=== PATIENT | female | born 1995 | race Caucasian/White ===

== ENCOUNTER → 2017-02-09 | Outpatient (CLI) | payer OTHER ==
[~2017-02-09] MED LIST: PREN1MIS44 PO; SENN8.6T36 PO
[2017-02-09 17:14] LABS: URINE APPEARANCE CLEAR (CLEAR); URINE BILIRUBIN NEG (NEG); URINE COLOR YELLOW; URINE EPITHELIAL CELL AUTO >30 /lpf (0-5); URINE NITRITE NEG (NEG); URINE PH 5.5 (4.5-7.5); URINE SPECIFIC GRAVITY 1.006 (1.000-1.030); UROBILINOGEN NEG (NEG)
[2017-02-09 17:16] LABS: MANUAL MICROSCOPIC REQUIRED? NO; REVIEW REQ? YES
== END | disposition home or self-care (01) ==
LOC: C.LABSPEC 16:24
PROVIDERS: ATTEND Obstetrics & Gynecology
DX: Z34.00 Encounter for supervision of normal first pregnancy, unspecified trimester (principal)

== ENCOUNTER → 2017-02-16 | Outpatient (CLI) | payer OTHER ==
[2017-02-19 23:54] LABS: CHLAMYDIA TRACH RNA*** NOT DETECTED (NOT DETECTED); GC (NEIS GONORRHOEAE)RNA** NOT DETECTED (NOT DETECTED)
== END | disposition home or self-care (01) ==
LOC: C.LABSPEC 17:38
PROVIDERS: ATTEND Obstetrics & Gynecology
DX: Z34.00 Encounter for supervision of normal first pregnancy, unspecified trimester (principal)

== ENCOUNTER → 2017-02-16 | Outpatient (CLI) | payer OTHER ==
[2017-02-16 15:40] LABS: BASO % 0.2 %; BASO ABS # 0.02 K/uL (0-0.2); COMPLETE YES; EOS % 0.5 %; HEMATOCRIT 38.3 % (37-47); IG% 0.1 %; LYMPH % 13.3 %; LYMPH ABS # 1.16 K/uL (1.2-3.4); MEAN CELL VOLUME 82.2 fL (80-100); MEAN CORPUSCULAR HEMOGLOBIN 29.2 pg (25-34); MEAN CORPUSCULAR HGB CONC 35.5 g/dl (32-36); MEAN PLATELET VOLUME 10.1 fL (7.4-10.4); MONO % 10.1 %; NEUT % 75.8 %; PLATELET COUNT 252 K/uL (130-400); RED BLOOD COUNT 4.66 M/uL (4.2-5.4); WHITE BLOOD COUNT 8.71 K/uL (4.8-10.8)
== END | disposition home or self-care (01) ==
LOC: C.LAB1850 14:43
PROVIDERS: ATTEND Obstetrics & Gynecology
DX: Z34.00 Encounter for supervision of normal first pregnancy, unspecified trimester (principal)

== ENCOUNTER → 2017-04-12 | Outpatient (CLI) | payer OTHER ==
[2017-04-12 18:21] LABS: GTGD 50 Grams
== END | disposition home or self-care (01) ==
LOC: C.LAB1850 15:39
PROVIDERS: ATTEND Obstetrics & Gynecology
DX: Z34.02 Encounter for supervision of normal first pregnancy, second trimester (principal)

== ENCOUNTER → 2017-07-05 | Outpatient (CLI) | payer OTHER ==
[2017-07-05 16:30] LABS: HEMATOCRIT 35.2 % (37-47)
[2017-07-05 17:31] LABS: GTGD 50 Grams
[2017-07-05 18:06] LABS: URINE APPEARANCE CLEAR (CLEAR); URINE BILIRUBIN NEG (NEG); URINE COLOR YELLOW; URINE NITRITE NEG (NEG); URINE PH 6.5 (4.5-7.5); UROBILINOGEN NEG (NEG)
[2017-07-05 18:09] LABS: MANUAL MICROSCOPIC REQUIRED? NO; REVIEW REQ? NO
== END | disposition home or self-care (01) ==
LOC: C.LAB1850 15:22
PROVIDERS: ATTEND Obstetrics & Gynecology
DX: Z34.02 Encounter for supervision of normal first pregnancy, second trimester (principal)

== ENCOUNTER → 2017-07-13 | Outpatient (CLI) | payer OTHER | END | disposition home or self-care (01) | LOC: C.LAB1850 07:50 | PROVIDERS: ATTEND Obstetrics & Gynecology | DX: O28.1 Abnormal biochemical finding on antenatal screening of mother (principal); Z3A.00 Weeks of gestation of pregnancy not specified ==

== ENCOUNTER 2017-09-20 00:06 | Inpatient (IN) | payer OTHER ==
[~2017-09-20] VITALS: Ht 162.6 cm; Wt 78.6 kg
[2017-09-20] MEDS ORDERED: LACTATED RINGER'S 1000ML 1,000 ML IV SCH (00:46)
[2017-09-20] MEDS ORDERED: LACTATED RINGER'S 1000ML 1,000 ML IV PRN (00:46)
[2017-09-20] MEDS ORDERED: EpHEDrine SULFATE INJ 50 MG/ML AMP ONE (00:49)
[2017-09-20] MEDS ORDERED: BUPIVACAINE 0.25% 30 ML VIAL ONE (00:49)
[2017-09-20] MEDS ORDERED: FENTANYL CITRATE INJ 50 MCG/1 ML 2 ML VIAL ONE (00:50)
[2017-09-20] MEDS ORDERED: FENTANYL 2MCG/ML ROPIV 1.25MG/ML 100ML BAG EPI ONE (00:50)
[2017-09-20 01:12] LABS: HEMATOCRIT 37.7 % (37-47); MEAN CELL VOLUME 82.9 fL (80-100); MEAN CORPUSCULAR HEMOGLOBIN 27.7 pg (25-34); MEAN CORPUSCULAR HGB CONC 33.4 g/dl (32-36); MEAN PLATELET VOLUME 10.7 fL (7.4-10.4); PLATELET COUNT 206 K/uL (130-400); RED BLOOD COUNT 4.55 M/uL (4.2-5.4); WHITE BLOOD COUNT 12.56 K/uL (4.8-10.8)
[2017-09-20] MEDS ORDERED: LACTATED RINGER'S 1000ML 500 ML IV PRN (01:47)
[2017-09-20] MEDS ORDERED: NALOXONE HCL INJ 1 MG in SODIUM CHLORIDE 0.9% 1000ML 1,000 ML IV PRN (01:47)
[2017-09-20] MEDS ORDERED: DiphenhydrAMINE HCL 50 MG/ML VIAL IV PRN (02:00)
[2017-09-20] MEDS ORDERED: NALOXONE HCL INJ 0.4 MG/1 ML VIAL/CARP IV PRN (02:00)
[2017-09-20] MEDS ORDERED: NALBUPHINE HCL INJ 10 MG/ML AMP IV PRN (02:00)
[2017-09-20] MEDS ORDERED: FENTANYL 2MCG/ML ROPIV 1.25MG/ML 100ML BAG EPI PRN (02:00)
[2017-09-20] MEDS ORDERED: EpHEDrine SULFATE INJ 50 MG/ML AMP IV PRN (02:00)
[2017-09-20] MEDS ORDERED: PATIENT'S ALLERGY INFO NEEDS ENTERED SCH (02:00)
[2017-09-20] MEDS ORDERED: ONDANSETRON INJ 2 MG/ML 2 ML VIAL IV PRN (02:00)
[2017-09-20] MEDS ORDERED: OXYTOCIN 30 UNITS/500ML NSS IV ONE (02:22)
[2017-09-20 03:33] VITALS: Ht 162.6 cm; Wt 78.6 kg
[2017-09-20] MEDS ORDERED: HYDROCORTISONE ACETATE 25 MG SUPP PR PRN (05:15)
[2017-09-20] MEDS ORDERED: BENZOCAINE 20% AER SPR 82.5 GM CAN EXT PRN (05:15)
[2017-09-20] MEDS ORDERED: SUPERCREAM 0.870 % 15GM JAR EXT PRN (05:15)
[2017-09-20] MEDS ORDERED: ACETAMINOPHEN 325 MG TAB PO PRN (05:15)
[2017-09-20] MEDS ORDERED: LANOLIN OINT EXT PRN ×2 (05:15)
[2017-09-20] MEDS ORDERED: DIPHTHERIA/TETANUS/PERTUSSIS 0.5 ML SYR/VIAL IM. ONE (05:15)
[2017-09-20] MEDS ORDERED: OXYTOCIN 30 UNITS/500ML NSS IV PRN (05:15)
--- NOTE | 2017-09-20 05:47 | DELIVERY SUMMARY ---
DATE OF OPERATION: 09/20/2017 FINDINGS: Viable male with Apgars of 8 and 9. Baby delivered by vacuum extraction for maternal exhaustion and nonreassuring heart tracing. Baby delivered over midline episiotomy with 4 degree extension. Cord gases and cord blood samples obtained. Placenta delivered spontaneously. Laceration repaired with 4-0 and 2-0 Vicryl. Episiotomy repaired with 4-0 and 2-0 Vicryl. Estimated blood loss 300 mL. LABOR NOTE: The patient is a 22-year-old 1, para 0 with an EDC of 24 September at 39+ weeks gestational age. She presented to labor and delivery in active labor. The patient states her contractions began at approximately 2200 hours on 19 September and increased in intensity. She had rupture of membranes and vaginal bleeding. The patient's course remarkable for an episode of palpitations which was seen by cardiology with a Holter monitor. Workup was negative. Laboratory values for the showed a blood type of B positive, antibody negative, rubella immune, hepatitis B negative. She declined a quad screen. She had a normal 1-hour Glucola at 16 weeks, elevated at 28 weeks with normal 2-hour glucose tolerance test and a negative third trimester beta strep culture. Upon admission, the patient was initially 6 cm. Anesthesia was consulted and an epidural was placed. Following placement of the epidural, the patient was still feeling pressure. Repeat examination showed the patient to be fully dilated with a bulging bag, artificial rupture of membranes for clear fluid. The patient began her second stage. She pushed for almost 2-1/2 hours bringing the vertex down to the perineum, however sharp bradycardic episodes began to develop with slow return to baseline. In addition, the maternal pushing effort had significantly declined after this amount of the second stage. Discussed the need for delivery by vacuum extraction, verbal consent obtained from the patient and her . With the next contraction, the baby was delivered over a midline episiotomy with 4th degree extension. Nuchal cord x1 reduced on the perineum. Terminal meconium was also noted. Cord was clamped and cut and baby was taken over to the resuscitation stand. Cord gases and cord blood samples were obtained. The placenta was delivered spontaneously. Inspection of perineum showed a midline episiotomy with 4th degree tear. The rectal mucosa was closed in two layers with 4-0 Vicryl, the first a running locking stitch, the second an imbricating stitch. Sphincter muscle was reapproximated with three 2-0 Vicryl sutures in [id number] fashion and the episiotomy was closed with 4-0 and 2-0 Vicryl. Estimated blood was 300 mL. Sponge and needle count was correct. I attest to the content of the Intraoperative Record and any orders documented therein. Any exception s are noted below.
[2017-09-20] MEDS ORDERED: PREN1MIS44 PO (05:56)
--- NOTE | 2017-09-20 07:01 | Anesthesia Procedure Note ---
Anesthesia Epidural Removal Nt Date & Time Sep 20, 2017 at 07:00 Vital Signs Pain Intensity: 10.0 Notes Mental Status: alert / awake / arousable, participated in evaluation Nausea / Vomiting: adequately controlled Pain: adequately controlled Airway Patency, RR, SpO2: stable & adequate BP & HR: stable & adequate Hydration State: stable & adequate Neuraxial Anesthesia: was administered, sensory block is resolving Anesthetic Complications: no major complications apparent, pt satisfied with anesthetic care Epidural: removed without complications, with tip intact
[2017-09-20] MEDS: IBUPROFEN 600 MG TAB PO PRN ×5 (07:10→23:58)
[2017-09-20] MEDS: FERROUS SULFATE 325 MG TAB PO SCH (07:10)
[2017-09-20] MEDS: PRENATAL VITAMIN TAB PO SCH (07:10)
[2017-09-20 08:10] VITALS: BP_SYST 109; BP_SYST 111; BP_DIAS 57; BP_DIAS 68; PULSE 100; PULSE 102; TEMP 37
[2017-09-20 11:00] VITALS: BP 110/67; PULSE 87; TEMP 36.7
[2017-09-20 16:15] VITALS: BP 101/60; PULSE 104; TEMP 37
[2017-09-20 20:00] VITALS: BP 112/71; PULSE 92; TEMP 37
[2017-09-20] MEDS: OXYCODONE/ACETAMINOPHEN 5-325 TAB PO PRN ×2 (20:20→23:59)
[2017-09-21] VITALS: BP 105/65; PULSE 90; TEMP 36.6
[2017-09-21 04:00] VITALS: BP 97/62; PULSE 92; TEMP 36.8
[2017-09-21] MEDS: OXYCODONE/ACETAMINOPHEN 5-325 TAB PO PRN ×5 (04:18→20:14)
[2017-09-21] MEDS: IBUPROFEN 600 MG TAB PO PRN ×5 (04:18→20:13)
--- NOTE | 2017-09-21 06:48 | OB/GYN Progress Note ---
[employer] Progress Note Date of Service Sep 21, 2017. Subjective conversation w/ patient, physical exam, chart review, lab review Voiding: no voiding problems Passing Gas: Yes Diet Tolerance: Regular Diet Lochia: Moderate Feeding Type: Breast Feeding Pain: pain improves with pain meds Review of Systems Constitutional: No fever, No chills Respiratory: No shortness of breath Cardiac: No chest pain Abdomen: No nausea, No vomiting Female : No dysuria Objective Vital Signs Date Time Temp Pulse Resp B/P (MAP) Pulse Ox O2 Delivery O2 Flow Rate FiO2 09/21/17 04:00 36.8 92 18 97/62 (74) Room Air 09/21/17 00:00 36.6 90 18 105/65 (78) Room Air 09/21/17 00:00 Room Air 09/20/17 20:00 37.0 92 16 112/71 (85) Room Air 09/20/17 16:15 37.0 104 16 101/60 (74) Room Air 09/20/17 16:15 Room Air 09/20/17 11:00 36.7 87 18 110/67 (81) Room Air 09/20/17 08:10 37.0 102 18 109/68 (82) Room Air 09/20/17 08:10 37.0 100 18 111/57 09/20/17 08:10 Room Air Physical Exam General Appearance: WELL-APPEARING Respiratory/Chest: lungs clear, normal breath sounds Cardiovascular: regular rate, rhythm Abdomen: normal bowel sounds, soft Fundus: Firm, Tender, Relation to Umbilicus (1 FB below) Extremities: non-tender, no pedal edema Laboratory Results Last 24 Hours Test 09/21/17 06:38 Assessment and Plan Day Number: 1 Continue Routine Care: A/P: This is a 22 y/o female, , s/p [normal vaginal delivery] with episiotomy day 1. She is ambulating and clinically stable. Plan: - Vitals signs are reviewed and WNL (Tmax 37 ) - Last Hgb is 9.6 - Blood type B+, GBS neg, Rubella Immune - Routine care - Encourage ambulation, monitor and control pain with medication as needed, continue with regular diet as tolerated and monitor lochia - Stool softeners and sitz bath recommended - Encourage breast feeding and educate about breast feeding Resident Physician Supervision Note: I interviewed and examined the patient. Discussed with Dr. Gonzalez and agree with findings and plan as documented in the note. Any exceptions or clarifications are listed here: Doing well. Plan d/c tomorrow. Documented By: Nancy Wolff Resident Involvement: Resident Care Provided Care Provided: OB Delivery
[2017-09-21 06:58] LABS: HEMATOCRIT 29.8 % (37-47)
--- NOTE | 2017-09-21 07:10 | Discharge Instructions ---
Discharge Instructions Date of Service Sep 21, 2017. Admission Reason for Admission: Encounter For Supervision Of Normal Intrauterine Discharge Discharge Diagnosis / Problem: after vaginal delivery Discharge Goals Goal(s): Routine recovery after delivery Medications Continue Dispensed Medications: supercream, dermaplast, tucks, lansinoh Activity Recommendations Activity Limitations: per Instructions/Follow-up section . Instructions / Follow-Up Instructions / Follow-Up ACTIVITY RECOMMENDATIONS: * Gradual return to full activity over the next 2-3 weeks. * No lifting - nothing heavier than baby over the next 2-3 weeks. * Do not engage in vigorous exercise, sexual activity or sports until cleared by your physician. * Do not drive or operate any motorized equipment until cleared by your physician. * You may shower/bathe daily. MEDICATIONS: For discomfort or pain, you may use Acetaminophen (Tylenol), Ibuprofen (Advil), or Naproxen (Aleve) following the package directions. For constipation you may use Colace following the package directions. BREAST CARE: If you are not breast feeding: * Wear a supportive bra 24 hours a day for one to two weeks. * Avoid stimulating your breasts and nipples as much as possible during the first few weeks after delivery. * When taking a shower, have the warm water hit your back, not breasts. * When your breasts feel full, apply ice packs. Usually three to four times a day helps ease the discomfort. * Take a mild pain medication (Tylenol / Motrin) when you are uncomfortable. If breast feeding: * Use breast milk to lubricate nipples. Lansinoh cream may be used for sore nipples. You do not need to remove cream prior to breast feeding. If using a different brand of cream, check the label for directions regarding removal of cream prior to nursing. * Wear a supportive bra. * If having problems with breasts or breast feeding, call a call center support consultant or your health care provider. EPISIOTOMY CARE: After delivery, if you have an episiotomy (stitches), the following steps will ease discomfort and aid healing. * For the first 24 hours after delivery, place ice packs next to your episiotomy to help reduce swelling. * After the first 24 hour-period, sitz baths, either portable or in the tub, are suggested. A shower with a shower arm sprayed over the episiotomy may be comforting. * Jeanette care should be done after each voiding and bowel movement. Squirt warm water from a plastic bottle over the perineum (region of the body between the anus and urinary opening) and pat dry. * Use Dermoplast to ease discomfort. Shake container. [place]chard directly over the episiotomy. Place a Tucks on a clean sanitary pad next to your episiotomy. SPECIAL CARE INSTRUCTIONS: When you are discharged from the hospital, it is important for you to follow the instructions listed below: * During the first week at home, you should be able to care for yourself and your baby. In addition, the usual light household activities are encouraged. * Limit your activities to the way you feel. Do not try to clean the house or move furniture. Be sensible. * If you actively engage in sports and have done so up until the time of your delivery, you may resume these activities as soon as you feel able. This may take up to one month or even longer. Use good judgment. * Continue to take your vitamins for at least six weeks after the of your baby. * Your diet need not be limited unless you were on a special diet before your delivery. Breast-feeding mothers need around 2500 calories per day and at least 64-80 ounces of fluid per day (8 to 10 glasses). * You should eat foods from the four major food groups. Crash diets or fad diets are to be avoided. Eating lean meats, fresh fruits and vegetables, low-fat dairy products, high fiber foods and a regular exercise program, will help you get back to your pre- weight without putting your health at risk. * Constipation is sometimes a problem after delivery. Take a mild laxative as needed. If breast feeding, Milk of Magnesia is acceptable to use. You may use a suppository or Fleets enema if no episiotomy. * A daily shower or tub bath is suggested. Be sure to thoroughly and gently dry the perineum. * A bloody vaginal discharge will usually continue until around four weeks post . A small amount of bleeding may continue for as long as six weeks. Vaginal discharge changes from the bright red bleeding after delivery to pink then brownish and finally yellowish-pink before becoming white and disappearing. * Bleeding may increase with activity. Your first period may come in 4-8 weeks. If you are breast feeding, your period may be delayed even longer. * Nicasio (sex) can begin whenever both you and your partner feel comfortable and do not have any form of genital infection. It is recommended that you wait at least six weeks for internal and external healing to occur. If you have questions, please talk to your health care practitioner. A condom should be used to prevent infection and . * Foreplay, gentle intercourse and lubrication is very important the first several times to prevent pain. A water-based lubricant such as K-Y jelly or Astroglide may be used. * If you have RH negative blood and your baby is RH positive, you will receive RHOGAM by injection prior to discharge. The nurse will give you a card to keep with you that has the date and place that you received RHOGAM after delivery. * During your care, you had a Rubella screen done to check for the presence of rubella antibodies in your blood. If your test was negative, you will receive a Rubella vaccine prior to discharge. This vaccine may cause a fever, soreness at the injection site and flu-like symptoms. If these symptoms persist, notify your health care practitioner. is not advised for one month after a Rubella vaccine. * Verbalizes understanding of car seat law as reviewed with patient nursing. * Car Seat hand-out given and reviewed with patient by nursing. * Shaken baby information reviewed with patient by nursing. Call you doctor if: * Heavy bleeding (saturating several pads an hour) or passing clots the size of your fist. * A fever >101 degrees F (38.3 degrees C) on two occasions four hours apart and /or chills. * Unusual pain in the pelvic or vaginal areas. * "Baby Blues" lasting longer than two weeks. If you have any questions or concerns, call your health care practitioner at . FOLLOW UP VISIT: * Please call the office at to schedule a 6 week examination. It is important you keep this appointment. It is important for you to make arrangements for either yearly or twice yearly check-ups thereafter. Current Hospital Diet Patient's current hospital diet: Regular OB Diet Discharge Diet Recommended Diet: Regular Diet Pending Studies Studies pending at discharge: no Medical Emergencies . Who to Call and When: Medical Emergencies: If at any time you feel your situation is an emergency, please call 911 immediately. . Non-Emergent Contact Non-Emergency issues call your: [employer] Call Non-Emergent contact if: temperature is above 101, your pain is not controlled . . "Provider Documentation" section prepared by Ca Gonzalez. . VTE Core Measure Inpt VTE Proph given/why not?: Treatment not indicated
[2017-09-21 07:15] VITALS: BP 112/68; PULSE 94; TEMP 36.7; O2SAT 95
[2017-09-21] MEDS ORDERED: SENN8.6T36 PO ×2 (07:26→07:30)
[2017-09-21] MEDS: DOCUSATE SODIUM/SENNA 50/8.6MG TAB PO SCH (08:09)
[2017-09-21] MEDS: FERROUS SULFATE 325 MG TAB PO SCH (08:09)
[2017-09-21] MEDS: PRENATAL VITAMIN TAB PO SCH (08:09)
[2017-09-21 16:00] VITALS: BP 121/76; PULSE 98; TEMP 36.9
[2017-09-21] MEDS ORDERED: BISACODYL 5 MG TABEC PO SCH (20:00)
[2017-09-21 23:35] VITALS: BP 113/71; PULSE 82; TEMP 37; O2SAT 97
[2017-09-22] MEDS: OXYCODONE/ACETAMINOPHEN 5-325 TAB PO PRN ×2 (01:03→04:46)
[2017-09-22] MEDS: IBUPROFEN 600 MG TAB PO PRN ×3 (01:03→08:35)
--- NOTE | 2017-09-22 07:40 | Progress Note ---
Subjective Sep 22, 2017. Subjective conversation w/ patient, physical exam, chart review Voiding: no voiding problems Diet Tolerance: Regular Diet Lochia: Moderate Feeding Type: Breast Feeding Objective Vital Signs Date Time Temp Pulse Resp B/P (MAP) Pulse Ox O2 Delivery O2 Flow Rate FiO2 09/21/17 23:35 97 Room Air 09/21/17 23:35 37.0 82 18 113/71 (85) 97 Room Air 09/21/17 16:00 Room Air 09/21/17 16:00 36.9 98 20 121/76 (91) 09/21/17 08:30 Room Air Physical Exam General Appearance: WELL-APPEARING Abdomen: non tender Fundus: Firm Extremities: no calf tenderness Assessment and Plan Post- Day#: 2 Continue Routine Care: 4th degree tear reviewed fdc
[2017-09-22] MEDS: PRENATAL VITAMIN TAB PO SCH (08:02)
[2017-09-22] MEDS: DOCUSATE SODIUM/SENNA 50/8.6MG TAB PO SCH (08:02)
[2017-09-22] MEDS: FERROUS SULFATE 325 MG TAB PO SCH (08:02)
[2017-09-22 08:37] VITALS: BP 115/73; PULSE 104; TEMP 36.9; O2SAT 100
[2017-09-22 12:00] VITALS: BP_DIAS 73; PULSE 104; TEMP 36.9
--- NOTE | 2017-09-24 08:24 | DISCHARGE SUMMARY ---
ADMITTING DIAGNOSES: 1. Term . 2. Active labor. DISCHARGE DIAGNOSES: 1. Same. 2. Nonreassuring heart rate tracing. PROCEDURES PERFORMED: 1. Assisted vaginal delivery, vacuum assisted. 2. Repair of fourth-degree lacerations. DISCHARGE MEDICATIONS: Jeanette-Colace 1 p.o. daily p.r.n. ADMISSION HISTORY: The patient is a 22-year-old 1, para 0 with an EDC of 09/24/2017, who was admitted at 39+ weeks' gestational age, in active labor. The patient states her contractions had begun the evening prior to admission and increased in intensity. She had rupture of membranes with no vaginal bleeding. The patient's course was remarkable for an episode of palpitations and she was seen by cardiology with a Holter monitor, workup was negative. Laboratory values for the showed a blood type of B positive, antibody negative, rubella immune, hepatitis B negative. She declined a quad screen. She had a normal 1-hour Glucola at 16 weeks, elevated at 28 weeks, with a normal 2-hour glucose tolerance test and a negative third trimester beta strep culture. ADMISSION PHYSICAL EXAMINATION: GENERAL: A gravid female in active labor, no acute distress. ABDOMEN: Gravid, vertex, positive heart tones, estimated weight of 7 pounds. PELVIC: Shows the cervix to be 6 cm dilated, 100% effaced and 0 station. HOSPITAL COURSE: heart rate tracing was category 1. Anesthesia was consulted and an epidural was placed. Following placement of the epidural, the patient was still feeling pelvic pressure. Repeat examination showed the patient to be fully dilated with bulging membranes, artificial rupture of membranes with clear fluid, and the patient began her second stage. The patient pushed for almost 2-1/2 hours, bringing the vertex down to the perineum. At this point, she began to develop sharp decelerations with contractions with slow return to baseline. heart rate tracing was felt to be category 3 at this point. The maternal pushing effort had also significantly declined after this amount of the second stage. Discussing the need for imminent vaginal delivery by vacuum extraction, verbal consent was obtained from the patient and her . With the next contraction, the baby delivered over midline episiotomy with fourth-degree extension. Nuchal cord x1 was reduced on the perineum. Terminal meconium was also noted. Cord was clamped and cut. Baby was taken to the resuscitation stand for evaluation. Cord gases and cord blood samples obtained. Placenta was delivered spontaneously. Inspection of the perineum showed a fourth-degree laceration. This was repaired by closing the rectal mucosa in 2 layers, first a running locking stitch, the second an imbricating stitch. The sphincter muscle was then reapproximated with 3 interrupted [id number] 2-0 Vicryl sutures and the episiotomy was repaired with 4-0 and 2-0 Vicryl. Estimated blood loss was 300 mL. , the patient did well. On the first day, the H&H came back at 9.6 and 29.8. By the second day, the patient was ambulating without difficulty and tolerating a regular diet. She was discharged home with the routine discharge instructions and the prescriptions for the medications listed as above. She will follow up in the office in 6 weeks' time for a check, but as always, she was instructed to call with any questions, problems or difficulties.
== END 2017-09-22 12:15 | disposition home or self-care (01) | DRG 775 ==
LOC: C.LD 00:06 → C.OPB 00:06 → C.LD 00:48 → C.OBG 08:15
PROVIDERS: ADMIT Obstetrics & Gynecology; ATTEND Obstetrics & Gynecology
PROC: 10E0XZZ Delivery of Products of Conception, External Approach (ICD-10-PCS; principal; 2017-09-20)
PROC: 0DQP0ZZ Repair Rectum, Open Approach (ICD-10-PCS; principal; 2017-09-20)
PROC: 10D07Z6 Extraction of Products of Conception, Vacuum, Via Natural or Artificial Opening (ICD-10-PCS; principal; 2017-09-20)
PROC: 0W8NXZZ Division of Female Perineum, External Approach (ICD-10-PCS; principal; 2017-09-20)
DX: O75.81 Maternal exhaustion complicating labor and delivery (principal); O70.3 Fourth degree perineal laceration during delivery; O69.82X1 Labor and delivery complicated by other cord entanglement, without compression, fetus 1; O76 Abnormality in fetal heart rate and rhythm complicating labor and delivery; Z37.0 Single live birth; Z3A.39 39 weeks gestation of pregnancy

== ENCOUNTER → 2018-03-12 | Outpatient (CLI) | payer OTHER | END | disposition home or self-care (01) | LOC: C.PAPS 15:42 | PROVIDERS: ATTEND Obstetrics & Gynecology | DX: Z12.4 Encounter for screening for malignant neoplasm of cervix (principal) ==

== ENCOUNTER → 2018-06-21 | Outpatient (CLI) | payer OTHER | END | disposition home or self-care (01) | LOC: C.LABSPEC 17:21 | PROVIDERS: ATTEND Obstetrics & Gynecology | DX: Z34.81 Encounter for supervision of other normal pregnancy, first trimester (principal) ==

== ENCOUNTER → 2018-06-27 | Outpatient (CLI) | payer OTHER ==
[2018-06-27 14:33] LABS: BASO % 0.2 %; BASO ABS # 0.02 K/uL (0-0.2); EOS % 0.5 %; EOS ABS # 0.05 K/uL (0-0.5); HEMATOCRIT 41.4 % (37-47); HEMOGLOBIN 13.9 g/dL (12.0-16.0); IG# 0.03 K/uL (0.00-0.02); LYMPH % 14.6 %; LYMPH ABS # 1.47 K/uL (1.2-3.4); MEAN CELL VOLUME 83.6 fL (80-100); MEAN CORPUSCULAR HEMOGLOBIN 28.1 pg (25-34); MEAN CORPUSCULAR HGB CONC 33.6 g/dl (32-36); MEAN PLATELET VOLUME 10.4 fL (7.4-10.4); MONO % 9.2 %; MONO ABS # 0.93 K/uL (0.11-0.59); NEUT % 75.2 %; NEUT ABS # 7.59 K/uL (1.4-6.5); PLATELET COUNT 298 K/uL (130-400); RED CELL DISTRIBUTION WIDTH CV 13.2 % (11.5-14.5); RED CELL DISTRIBUTION WIDTH SD 39.7 fL (36.4-46.3); WHITE BLOOD COUNT 10.09 K/uL (4.8-10.8)
== END | disposition home or self-care (01) ==
LOC: C.LAB1850 12:33
PROVIDERS: ATTEND Obstetrics & Gynecology
DX: Z34.81 Encounter for supervision of other normal pregnancy, first trimester (principal)

== ENCOUNTER 2019-02-04 03:34 | Inpatient (IN) ==
[2019-02-04] MEDS ORDERED: OXYTOCIN 30 UNITS/500 ML BAG IV PRN ×2 (03:52→07:38)
[2019-02-04] MEDS ORDERED: LACTATED RINGER'S 1,000 ML IV PRN (03:52)
[2019-02-04] MEDS ORDERED: LACTATED RINGER'S 1,000 ML IV SCH (04:00)
[2019-02-04 04:23] LABS: Hematocrit (blood only) 39.4 % (37-47); Hemoglobin 13.3 g/dL (12.0-16.0); Mean Corpuscular Volume 83.3 fL (80-100); Mean Platelet Volume 10.3 fL (7.4-10.4); Platelet Count 191 K/uL (130-400); RDW Coefficient of Variation 14.7 % (11.5-14.5); Red Blood Count 4.73 M/uL (4.2-5.4)
[2019-02-04 04:27] LABS: Mean Corpuscular Hgb Conc 33.8 g/dL (32-36)
[2019-02-04] MEDS ORDERED: ACETAMINOPHEN W/CODEINE #3 1 TAB PO PRN (04:59)
--- NOTE | 2019-02-04 05:03 | History & Physical Report ---
Date of Service February 04, 2019 Assessment & Plan (1) Normal labor and delivery: Delivery note Patient pushed over 1-2 contractions to deliver a viable male in rhina and the body was immediately delivered. placed on the maternal abdomen for drying and attention. cord clamped and cut. cord blood obtained. Placenta delivered s/i/3vc. Second degree laceration repaired in normal fashion. ebl--400c. Hemostasis with dilute pit and massage. apgars 8/9. Mother and baby doing well at the end of the delivery. History of Present Illness Chief Complaint: contractions Primary Care Provider: Katelin Springer MD Patient is a 23yowf with iup at 38 5/7 weeks who presents to labor and delivery very uncomfortable and writhing with contractions. ? lof checked and found to be 7 cm with a bulging bag. She is progressing quickly. has been uncomplicated. Allergies Allergy/AdvReac Type Severity Reaction Status Date / Time strawberry Allergy Mild HIVES Verified 09/22/17 10:19 Cipro Allergy Unknown RASH Verified 09/22/17 10:19 Home Medications Home Medications Medication Instructions Recorded Confirmed Type Vit W/ Ferrous Fumara PO DAILY #0 09/20/17 History (One A Day Womens 28-0.8 & 223 mg) SENNOSIDES-DOCUSATE SODIUM 50 mg PO DAILY 60 Days #60 tab 09/21/17 Rx (DOCUSATE SODIUM/SENNA) Patient History Medical History Anxiety History of varicella Migraine Prentiss teeth extracted OB History g1--09/21-vavd with epis and 4th degree repair [employer]IVE History no stds, no abnl pap Review of Systems All systems reviewed & are unremarkable except as noted in HPI & below Physical Exam Vital Signs (Past 24 Hours): Last Vital Signs Pulse 90 02/04/19 04:53 BP 125/67 02/04/19 04:53 Constitutional: WD/WN, vitals as above writhing Gastrointestinal (Abdomen): gravid Genitourinary: cx--c/c/+2 srom--clear toco--q2? efm--140s, variables heard with contractions--not good tracing as patient writhing in the bed.
--- NOTE | 2019-02-04 05:12 | Procedure Note ---
Vaginal Delivery Summary Date of Service February 04, 2019 see ob H and P for deilvery note in the assessment of the note.
[2019-02-04] MEDS: IBUPROFEN 600 MG TAB PO PRN ×4 (06:04→23:43)
[2019-02-04] MEDS ORDERED: BENZOCAINE 20% AER SPR 82.5 GM CAN EXT PRN (07:38)
[2019-02-04] MEDS ORDERED: HYDROCORTISONE ACETATE 25 MG SUPP PR PRN (07:38)
[2019-02-04] MEDS ORDERED: DIPHTHERIA/TETANUS/PERTUSSIS 0.5 ML SYR/VIAL IM ONE (07:38)
[2019-02-04] MEDS ORDERED: ACETAMINOPHEN 325 MG TAB PO PRN (07:38)
[2019-02-04] MEDS ORDERED: SUPERCREAM 0.870% 15 GM JAR EXT PRN (07:38)
[2019-02-04] MEDS: DOCUSATE SODIUM 100 MG CAP PO SCH ×2 (08:55→21:09)
[2019-02-04] MEDS: PRENATAL VITAMIN 1 TAB PO SCH (08:55)
[2019-02-05] MEDS: IBUPROFEN 600 MG TAB PO PRN ×2 (04:03→08:47)
[2019-02-05 06:54] LABS: Hematocrit (blood only) 32.6 % (37-47); Hemoglobin 10.6 g/dL (12.0-16.0)
--- NOTE | 2019-02-05 07:50 | Obstetrical Progress Note ---
Date of Service <Jerome Ryder DO - Last Filed: 02/05/19 07:50> February 05, 2019 Assessment & Plan <Jerome Ryder DO - Last Filed: 02/05/19 07:50> (1) Normal labor and delivery: - PPD#1 plan is for discharge home today, discharge instructions reviewed with patient, all questions and concerns addressed Subjective <Jerome Ryder DO - Last Filed: 02/05/19 07:50> Ambulation: ambulating normally Voiding: no voiding problems Passing Gas:: Yes Diet Tolerance:: regular diet Lochia:: Small Feeding Type:: breast feeding Maricruz had no acute events overnight. She denies fever, chills, chest pain, shortness of breath, nausea, vomiting, diarrhea, headache. She is requesting discharge home if medically cleared. Physical Exam <Jerome Ryder DO - Last Filed: 02/05/19 07:50> Vital Signs (Past 24 Hours) Last Vital Signs Temp 36.9 C 02/05/19 03:50 Pulse 76 02/05/19 03:50 Resp 16 02/05/19 03:50 BP 110/73 02/05/19 03:50 Pulse Ox 97 02/04/19 08:10 Constitutional WD/WN, vitals as above cooperative and comfortable Eyes + anicteric sclerae and EOM intact bilaterally Neck normal visual inspection and trachea midline Respiratory normal respiratory effort, lungs clear to auscultation Cardiovascular Rate/Rhythm: regular rate and regular rhythm Heart Sounds: no murmur Gastrointestinal (Abdomen) Percussion/Palpation: abdomen nontender uterine fundus is firm, non-tender, 3-cm below umbilicus Musculoskeletal Head/Neck/Chest: normocephalic and head atraumatic Skin no rashes, warm and dry Neurologic moves all extremities and awake Psychiatric A+Ox3, euthymic affect Results & Data <Jerome Ryder DO - Last Filed: 02/05/19 07:50> Laboratory Results Laboratory Results - last 24 hr 02/05/19 06:40 Hgb 10.6 L Hct 32.6 L Medications Administered Benzocaine (Dermoplast Pain Relieving [place]) 1 appln EXT PRN PRN PRN Reason: Perineal Discomfort Stop: 03/06/19 07:37 Last Admin: 02/04/19 08:55 Dose: 82.5 appln Documented by: [id number] Docusate Sodium (Colace) 100 mg PO BID [facility] Stop: 03/06/19 08:59 Last Admin: 02/04/19 21:09 Dose: 100 mg Documented by: [id number] Admin: 02/04/19 08:55 Dose: 100 mg Documented by: [id number] Ibuprofen (Motrin) 600 mg PO Q4H PRN PRN Reason: Pain/TEJADA/Cramping/Fever Stop: 03/06/19 04:58 Last Admin: 02/05/19 04:03 Dose: 600 mg Documented by: [id number] Admin: 02/04/19 23:43 Dose: 600 mg Documented by: [id number] Admin: 02/04/19 18:38 Dose: 600 mg Documented by: [id number] Admin: 02/04/19 12:31 Dose: 600 mg Documented by: [id number] Admin: 02/04/19 06:04 Dose: 600 mg Documented by: [id number] Prenat Multivit/[place]/Iron/Folic Ac ( Vitamin) 1 tab PO QAM [facility] Stop: 03/06/19 08:59 Last Admin: 02/04/19 08:55 Dose: 1 tab Documented by: [id number] <Hermilo Pérez MD - Last Filed: 02/10/19 15:05> Co-Signing Physician Notes Patient seen and agree with the above findings and plan
[2019-02-05] MEDS: PRENATAL VITAMIN 1 TAB PO SCH (08:45)
[2019-02-05] MEDS: DOCUSATE SODIUM 100 MG CAP PO SCH (08:45)
[2019-02-05] MEDS ORDERED: BISACODYL 5 MG TABEC PO SCH (20:00)
[2019-02-06] MEDS ORDERED: BISACODYL 10 MG SUPP PR PRN (06:00)
== END 2019-02-05 15:10 | disposition home or self-care (01) | DRG 807 ==
LOC: OPB 03:34 → 4S1 03:41 → 4S2 08:24
DX: O70.1 Second degree perineal laceration during delivery; Z37.0 Single live birth; Z3A.38 38 weeks gestation of pregnancy; Z88.1 Allergy status to other antibiotic agents